=== PATIENT | male | born 1995 | race Caucasian/White ===

== ENCOUNTER 2022-07-30 13:59 | Emergency (ER) | payer OTHER ==
[2022-07-30] MEDS ORDERED: Sodium Chloride 0.9% 10 ML Syringe FLUSH PRN (14:02)
[2022-07-30] MEDS ORDERED: Sodium Chloride 0.9% 1,000 ML IV SCH ×2 (14:15→15:15)
[2022-07-30 14:23] LABS: ESTIMATED GFR 123 mL/min (>60)
[2022-07-30] MEDS ORDERED: Diphtheria,Pertussis(Acell),Tetanus Vaccine 0.5 ML Syringe IM ONE (14:39)
[2022-07-30] MEDS ORDERED: Amoxicillin/Clavulanate K 875-125 MG Tab PO STA (15:07)
== END 2022-07-30 17:50 ==
LOC: FB.ED 13:59
DX: S61.051A Open bite of right thumb without damage to nail, initial encounter (principal); T68.XXXA Hypothermia, initial encounter; T14.8XXA Other injury of unspecified body region, initial encounter; E16.2 Hypoglycemia, unspecified; Z23 Encounter for immunization; V49.40XA Driver injured in collision with unspecified motor vehicles in traffic accident, initial encounter; W50.3XXA Accidental bite by another person, initial encounter; Y92.410 Unspecified street and highway as the place of occurrence of the external cause
CPT/HCPCS: 36415; 71045; 73030-RT; 73080-RT; 80053; 80307; 81001; 85025; 85610; 85730; 90471; 90715; 93005; 96360; 96361; 99285-25; A9270-GY; J3490; J7030